=== PATIENT | female | born 1985 | race African-American/Black ===

== ENCOUNTER 2022-03-13 05:45 | Inpatient (IN) | payer BC, OTHER ==
[2022-03-13] MEDS ORDERED: Famotidine/PF 20 mg/2ml Vial SLOW IVP PRN (06:02)
[2022-03-13] MEDS ORDERED: CEFAZOLIN 3 GM, Admixture Fee 1 EACH in Sodium Chloride 0.9% 100 ML IVPB SCH (06:02)
[2022-03-13] MEDS ORDERED: Promethazine HCl 25 MG/ML VIAL IM PRN ×3 (06:02→13:08)
[2022-03-13] MEDS ORDERED: hydrALAZINE 20 MG/ML VIAL SLOW IVP PRN ×2 (06:02→13:08)
[2022-03-13] MEDS ORDERED: Bicitra 30 ML UDCUP PO PRN (06:02)
[2022-03-13] MEDS ORDERED: Lactated Ringer's 1,000 ML IV SCH (06:02)
[2022-03-13] MEDS ORDERED: Ondansetron PF 4 MG/2 ML Vial IVP PRN ×3 (06:02→13:08)
[2022-03-13 06:18] VITALS: BMI 50.7
[2022-03-13 06:36] LABS: Hemoglobin 10.3 g/dL (12.0-15.5); Mean Corpuscular Hemoglobin 27.2 pg (27.0-33.0); Mean Corpuscular Volume 80.2 fl (81.6-98.3); Mean Platelet Volume 10.3 fl (7.4-10.4); Platelet Count 325 10x3/uL (150-450); RBC Distribution Width 13.4 % (11.5-14.5); Red Blood Cell (RBC) Count 3.78 10x6/uL (3.90-5.03); White Blood Cell (WBC) Count 6.5 10x3/uL (3.5-10.5)
[2022-03-13] MEDS ORDERED: Oxytocin 10 UNITS/ML VIAL ONE ×2 (07:04→08:19)
[2022-03-13] MEDS ORDERED: Morphine PF 10 MG/10 ML VIAL ONE (07:04)
[2022-03-13] MEDS ORDERED: PHENYLEPHRINE-NS 100 MCG/ML 10 ML SYRINGE ONE (07:04)
[2022-03-13 07:06] LABS: HBSAg Index 0.22 S/CO (0-0.99); Hep B Surf Ag Non-Reactive S/CO (NonReactive)
[2022-03-13 07:39] LABS: Syphilis Antibody Nonreactive (Nonreactive); Syphilis Antibody Index 0.08 S/CO (<1.00 Non-Reactive)
[2022-03-13] MEDS ORDERED: Lidocaine 1% PF 10 ML AMP ONE ×2 (07:50→08:55)
[2022-03-13] MEDS ORDERED: Ondansetron PF 4 MG/2 ML Vial ONE (08:05)
[2022-03-13] MEDS ORDERED: Ketorolac Tromethamine 30 MG/ML VIAL ONE (08:37)
[2022-03-13] MEDS ORDERED: HYDROmorphone 2 MG/ML VIAL SLOW IVP PRN (09:11)
[2022-03-13] MEDS ORDERED: Naloxone HCl 0.4 mg/ml Vial IV PRN (09:11)
[2022-03-13] MEDS ORDERED: Moisturizing Cream (Eucerin) 113 GM JAR TOP PRN (09:11)
[2022-03-13] MEDS ORDERED: Ondansetron HCl/PF 4 MG/2 ML Vial IVP PRN (09:11)
[2022-03-13] MEDS ORDERED: Naloxone HCl 0.4 mg/ml Vial IVP PRN ×2 (09:11)
[2022-03-13] MEDS ORDERED: diphenhydrAMINE 50 MG/ML VIAL IVP PRN (09:11)
[2022-03-13] MEDS ORDERED: Fentanyl 100 MCG/2 ML VIAL SLOW IVP PRN (09:11)
[2022-03-13] MEDS ORDERED: Ketorolac Tromethamine 30 MG/ML VIAL IVP PRN (09:11)
[2022-03-13] MEDS ORDERED: Promethazine HCl 25 MG SUPP PR PRN (09:11)
[2022-03-13] MEDS ORDERED: Meperidine HCl/PF 25 MG/ML VIAL SLOW IVP PRN (09:11)
[2022-03-13] MEDS ORDERED: Ketorolac Tromethamine 30 MG/ML VIAL IVP SCH (09:15)
[2022-03-13] MEDS ORDERED: Communication Order-Pharmacy FS SCH (09:15)
[2022-03-13] MEDS ORDERED: Bisacodyl 10 MG SUPP PR PRN (13:08)
[2022-03-13] MEDS ORDERED: diphenhydrAMINE 25 MG CAP PO PRN (13:08)
[2022-03-13] MEDS ORDERED: NS w/ Oxytocin 30 units 500 ML IV SCH (13:08)
[2022-03-13] MEDS ORDERED: Lanolin Ointment 7 GM TUBE TOP PRN (13:08)
[2022-03-13] MEDS ORDERED: Ferrous Sulfate 325 MG TAB PO SCH (13:30)
[2022-03-13] MEDS ORDERED: Docusate 100 MG CAP PO SCH (13:30)
[2022-03-13] MEDS: Ketorolac Tromethamine 30 MG/ML VIAL IVP SCH ×2 (13:54→21:05)
[2022-03-13] MEDS ORDERED: Prenatal Vitamin 1 TAB PO SCH (14:00)
[2022-03-13] MEDS ORDERED: Meperidine HCl/PF 25 MG/ML VIAL IM PRN (21:15)
[2022-03-13] MEDS: Ferrous Sulfate 325 MG TAB PO SCH (22:49)
[2022-03-13] MEDS: Docusate 100 MG CAP PO SCH (22:49)
[2022-03-14] MEDS: Ketorolac Tromethamine 30 MG/ML VIAL IVP SCH ×2 (03:13→09:48)
[2022-03-14 05:58] LABS: Hemoglobin 9.1 g/dL (12.0-15.5); Mean Corpuscular HGB CONC 33.1 g/dL (32.0-36.0); Mean Corpuscular Hemoglobin 27.3 pg (27.0-33.0); Mean Corpuscular Volume 82.6 fl (81.6-98.3); Mean Platelet Volume 10.3 fl (7.4-10.4); Platelet Count 266 10x3/uL (150-450); RBC Distribution Width 13.2 % (11.5-14.5); Red Blood Cell (RBC) Count 3.33 10x6/uL (3.90-5.03); White Blood Cell (WBC) Count 8.1 10x3/uL (3.5-10.5)
[2022-03-14] MEDS: Ferrous Sulfate 325 MG TAB PO SCH ×2 (09:00→21:32)
[2022-03-14] MEDS: HYDROcodone/Acetaminophen 5/325 mg Tablet PO PRN ×3 (09:42→21:33)
[2022-03-14] MEDS: Simethicone Chewable 80 MG TAB PO PRN (09:42)
[2022-03-14] MEDS: Docusate 100 MG CAP PO SCH ×2 (09:42→21:31)
[2022-03-14] MEDS: Prenatal Vitamin 1 TAB PO SCH (09:43)
[2022-03-14] MEDS: Ibuprofen 800 MG TAB PO SCH ×2 (14:32→21:32)
[2022-03-15] MEDS: HYDROcodone/Acetaminophen 5/325 mg Tablet PO PRN ×4 (02:20→17:31)
[2022-03-15] MEDS: Ibuprofen 800 MG TAB PO SCH ×2 (05:22→13:07)
[2022-03-15] MEDS: Simethicone Chewable 80 MG TAB PO PRN ×3 (08:21→17:31)
[2022-03-15] MEDS: Docusate 100 MG CAP PO SCH (08:21)
[2022-03-15] MEDS: Ferrous Sulfate 325 MG TAB PO SCH (08:21)
[2022-03-15] MEDS: Prenatal Vitamin 1 TAB PO SCH (08:21)
[2022-03-15 08:30] VITALS: BP 134/79; TEMP 97.9
[2022-03-16] MEDS ORDERED: Boostrix 0.5 ML (Tdap) VIAL (>/=7 yrs of age) IM ONE (13:08)
== END 2022-03-15 18:00 | disposition home or self-care (01) | DRG 788 ==
LOC: CSHLD 05:45 → CSHPP 14:02
PROVIDERS: ADMIT Family Medicine; ATTEND Family Medicine
PROC: 10D00Z1 Extraction of Products of Conception, Low, Open Approach (ICD-10-PCS; principal; 2022-03-13)
DX: O34.211 Maternal care for low transverse scar from previous cesarean delivery (principal); Z3A.39 39 weeks gestation of pregnancy; Z37.0 Single live birth; E66.01 Morbid (severe) obesity due to excess calories; O99.214 Obesity complicating childbirth; Z79.899 Other long term (current) drug therapy; O16.4 Unspecified maternal hypertension, complicating childbirth
CPT/HCPCS: 36415; 51702; 85027; 86780; 86850; 86900; 86901; 87340; J1885; J2001; J2274; J2405; J2550; J2590; J7120; S0028